=== PATIENT | female | born 1965 | race Caucasian/White ===

== ENCOUNTER 2020-11-29 12:03 | Emergency (ER) | payer BC ==
[2020-11-29 12:57] LABS: HEMOGLOBIN 14.9 gm/dl (12.3-15.3); RED BLOOD COUNT 4.94 M/UL (4.00-5.10); WHITE BLOOD COUNT 7.3 K/UL (4.5-11.0)
[2020-11-29 13:26] LABS: BUN/CREATININE RATIO 17 (0-10)
[2020-11-29] MEDS ORDERED: NEB MACHINE (14:59)
[2020-11-29] MEDS ORDERED: ALBUTEROL2.5 MG/3 M INH (14:59)
== END 2020-11-29 15:21 | disposition home or self-care (01) ==
LOC: ER1 12:03
PROVIDERS: Physician Assistant Medical
DX: R06.02 Shortness of breath (principal); J45.909 Unspecified asthma, uncomplicated; E03.9 Hypothyroidism, unspecified; Z87.442 Personal history of urinary calculi; Z90.49 Acquired absence of other specified parts of digestive tract; Z90.710 Acquired absence of both cervix and uterus; Z88.5 Allergy status to narcotic agent; Z79.899 Other long term (current) drug therapy
CPT/HCPCS: 71045; 80053; 82550; 82553; 83874; 83880; 84484; 85025; 85379; 85610; 93005; 99285; Q9967

== ENCOUNTER 2021-01-25 19:22 | Emergency (ER) | payer BC ==
[~2021-01-25 19:22] MED LIST: ALBUTEROL2.5 MG/3 M INH; NEB MACHINE
[2021-01-25 20:30] LABS: HEMOGLOBIN 15.7 gm/dl (12.3-15.3); RED BLOOD COUNT 5.15 M/UL (4.00-5.10); WHITE BLOOD COUNT 8.2 K/UL (4.5-11.0)
[2021-01-25 20:55] LABS: BUN/CREATININE RATIO 12 (0-10)
== END 2021-01-26 06:28 | disposition home or self-care (01) ==
LOC: ER1 19:22
PROVIDERS: Physician Assistant
DX: R06.00 Dyspnea, unspecified (principal); R05 Cough; R91.1 Solitary pulmonary nodule; Z79.01 Long term (current) use of anticoagulants; Z20.822 Contact with and (suspected) exposure to COVID-19
CPT/HCPCS: 36600; 71045; 80053; 81001; 82550; 82553; 82803; 83605; 83874; 83880; 84484; 85025; 85610; 85730; 87040; 93005; 99285; Q9967; U0002

== ENCOUNTER 2021-05-12 18:28 | Emergency (ER) | payer OTHER ==
[2021-05-12 19:42] LABS: HEMOGLOBIN 15.5 gm/dl (12.3-15.3); RED BLOOD COUNT 5.17 M/UL (4.00-5.10); WHITE BLOOD COUNT 8.7 K/UL (4.5-11.0)
== END 2021-05-12 22:45 | disposition home or self-care (01) ==
LOC: ER1 18:28
PROVIDERS: Physician Assistant Medical
DX: R07.89 Other chest pain (principal); R05.9 Cough, unspecified; R00.2 Palpitations; R06.02 Shortness of breath; Z90.710 Acquired absence of both cervix and uterus; Z20.822 Contact with and (suspected) exposure to COVID-19; Z79.01 Long term (current) use of anticoagulants; Z88.5 Allergy status to narcotic agent; Z86.711 Personal history of pulmonary embolism
CPT/HCPCS: 71045; 80053; 82550; 82553; 83874; 84484; 85025; 85379; 85610; 93005; 99285; J7030; Q9967; U0002

== ENCOUNTER 2021-07-22 07:57 | Emergency (ER) | payer SELFPAY | END 2021-07-22 10:39 | disposition home or self-care (01) | LOC: ER1 07:57 | DX: G43.909 Migraine, unspecified, not intractable, without status migrainosus (principal); J45.909 Unspecified asthma, uncomplicated; Z90.710 Acquired absence of both cervix and uterus; Z90.89 Acquired absence of other organs; Z88.5 Allergy status to narcotic agent | CPT/HCPCS: 96374; 96375; 99283; J1200; J1885; J2765; J2930; J7030 ==

== ENCOUNTER 2021-09-10 16:03 | Emergency (ER) | payer OTHER ==
[2021-09-10 17:49] LABS: HEMOGLOBIN 14.2 gm/dl (12.3-15.3); RED BLOOD COUNT 4.74 M/UL (4.00-5.10)
== END 2021-09-10 19:30 | disposition home or self-care (01) ==
LOC: ER1 16:03
PROVIDERS: Physician Assistant
DX: R10.31 Right lower quadrant pain (principal); R10.813 Right lower quadrant abdominal tenderness; R31.9 Hematuria, unspecified; Z88.5 Allergy status to narcotic agent; Z87.442 Personal history of urinary calculi
CPT/HCPCS: 80053; 81001; 83690; 85025; 87086; 96374; 99284; J1885; J2405